=== PATIENT | male | born 1955 | race Caucasian/White ===

== ENCOUNTER 2023-07-14 19:00 | Inpatient (IN) | payer OTHER ==
[~2023-07-14] VITALS: Ht 180.3 cm; Wt 66.0 kg
[2023-07-14] MEDS ORDERED: LEVSOD100 PO (19:23)
[2023-07-14] MEDS ORDERED: OMEP20ER PO (19:23)
[2023-07-14] MEDS ORDERED: TADA10TA (19:24)
[2023-07-14 20:26] LABS: Hemoglobin 10.3 g/dL (13.5-17.5); Mean Corpuscular HGB 28.4 pg (26.0-34.0); Mean Corpuscular HGB Conc 33.2 g/dL (31.5-36.5); Mean Corpuscular Volume 85 fL (80-100); Mean Platelet Volume 9.7 fL (9.1-12.4); Platelet Count 447 K/mm3 (150-400); RDW Standard Deviation 46.6 fL (35.1-46.3); Red Blood Cell Count 3.63 M/mm3 (4.30-5.90); White Blood Cell Count 23.14 K/mm3 (4.00-11.30)
[2023-07-14 20:28] LABS: Albumin, Blood 1.5 g/dL (3.4-5.0); Albumin/Globulin Ratio 0.3 (0.8-1.8); Bilirubin, Total 0.2 mg/dL (0.1-1.0); Bun/Creatinine Ratio 34.4 (12.0-20.0); Calcium, Blood 8.5 mg/dL (8.5-10.1); Creatinine, Blood 0.76 mg/dL (0.60-1.20); Globulin, Blood 4.8 g/dL (2.2-4.0); Potassium, Blood 5.1 mmol/L (3.5-5.5); Total Protein, Blood 6.3 g/dL (6.4-8.2)
[2023-07-14 20:48] LABS: BAND PERCENT MAN 5 % (0-8); BASOPHILS PERCENT MAN 0 % (0-2); EOSINOPHILS ABSOLUTE MAN 0.23 K/mm3 (0.00-0.68); EOSINOPHILS PERCENT MAN 1 % (0-6); LYMPHOCYTES ABSOLUTE MAN 2.54 K/mm3 (0.84-5.20); LYMPHOCYTES PERCENT MAN 11 % (21-46); METAMYELOCYTE ABSOLUTE MAN 0.92 K/mm3 (0.00-0.00); METAMYELOCYTE PERCENT MAN 4 % (0-0); MONOCYTES ABSOLUTE MAN 1.85 K/mm3 (0.16-1.47); MONOCYTES PERCENT MAN 8 % (4-13); MYELOCYTE ABSOLUTE MAN 1.15 K/mm3 (0.00-0.00); MYELOCYTE PERCENT MAN 5 % (0-0); NEUTROPHILS ABSOLUTE MAN 16.42 K/mm3 (1.96-9.15); SEG NEUTROPHILS PERCENT MAN 66 % (41-73); TOTAL CELLS COUNTED 100
[2023-07-14 22:47] VITALS: BP 123/75
[2023-07-15] VITALS (16 sets, daily range): BP systolic 96–143; BP diastolic 55–128
--- NOTE | 2023-07-15 02:50 | NUR ---
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 PT C/O 7/10W PAIN "THROBBING" MEDICATED PER EMAR. LUNGS CLEAR T/O, VITALS ARE STABLE WITH HR 90s, PT REPORTS HX OF MENTAL HEALTH STRUGGLES BIPOLAR DEPRESSION ANXIETY AND HAS NOT BEEN TAKING MEDICATINS REGULARLY, PAIENT ABLE TO STAND ON RIGHT LEG AT BEDSIDE TO VOID OR PIVOT TO BSC WEIGHT TOLERATED, PT CALLS APPROPERAITELY A&OX4 CALL BEEL WITHIN REACH BED LOWERED WILL CONTINUE TO MONITOR.
[2023-07-15 06:17] LABS: Hematocrit 30.2 % (37.0-53.0); Hemoglobin 10.1 g/dL (13.5-17.5); Mean Corpuscular HGB 28.4 pg (26.0-34.0); Mean Corpuscular HGB Conc 33.4 g/dL (31.5-36.5); Mean Corpuscular Volume 85 fL (80-100); Mean Platelet Volume 9.2 fL (9.1-12.4); Platelet Count 477 K/mm3 (150-400); RDW Standard Deviation 47.5 fL (35.1-46.3); Red Blood Cell Count 3.56 M/mm3 (4.30-5.90); White Blood Cell Count 22.28 K/mm3 (4.00-11.30)
[2023-07-15 06:33] LABS: International Normalized Ratio 1.19; Prothrombin Time Results 12.4 Sec (9.7-11.5)
[2023-07-15 06:43] LABS: Bun/Creatinine Ratio 33.1 (12.0-20.0); Calcium, Blood 8.3 mg/dL (8.5-10.1); Creatinine, Blood 0.73 mg/dL (0.60-1.20); Potassium, Blood 4.8 mmol/L (3.5-5.5)
--- NOTE | 2023-07-15 19:28 | NUR ---
SHIFT SUMMARY: PT A&O X4. PLEASANT AND COOPERATIVE WITH CARE. PT C/O 12/11 PAIN IN LLE THIS AM. PA AND DR. CLEARY CONSULT PT FOR I&D OF L. KNEE. PT ARRIVED BACK FROM SURGERY @1815 VIA GURNEY W/ WOUND VAC AND HEMAVAC. PT C/O 11/10 PAIN. MEDICATED PER EMAR. NS INFUSING @100/HR c IV ABX. CALL LIGHT IN REACH. BED IN LOWEST POSITION. POST-OP VITALS OBTAINED. REPORT GIVEN TO ONCOMING RN.
[2023-07-16 02:35] VITALS: BP 114/70
--- NOTE | 2023-07-16 05:05 | NUR ---
SHIFT SUMMARY PT ADMIT FOR SEPSIS AND CELLULITIS IN LLE. SURGERY YESTERDAY. WOUND VAC APPLIED. PT CALM AND COOPERATIVE WITH CARE. MEDICATED FOR PAIN X2. PT SLEPT WELL MOST OF NIGHT.
[2023-07-16 07:18] VITALS: BP 125/66
[2023-07-16 10:28] LABS: Vancomycin, Trough 16.4 ug/mL (5.0-10.0)
[2023-07-16 15:37] VITALS: BP 127/88
--- NOTE | 2023-07-16 18:44 | NUR ---
SHIFT SUMMARY WOUND VAC RUNNING THIS SHIFT 120MMGH, HEMOVAC IN PLACE AND DRAINING PURLUENT RED/BROWN DRAINAINGE. C/O PAIN IN LEFT KNEE/LEG THIS SHIFT, MANAGED WITH FENTANYL AND OXY. PT EVAL THIS SHIFT. NPO AFTER MIDNIGHT FOR WOUND WASHOUT IN AM. CARES ONGOING.
[2023-07-16 20:02] VITALS: BP 109/65
[2023-07-17] VITALS (11 sets, daily range): BP systolic 98–133; BP diastolic 61–86
--- NOTE | 2023-07-17 08:07 | NUR ---
SHIFT SUMMARY NOC PT A/O X 4. PLEASANT AND COOPERATIVE WITH CARE. PT LLE PAIN MANAGED PER EMAR. WOUND VAC/HEMAVAC IN PLACE ON LLE DRAINING SEROSANGEOUS FLUID TO CONTAINER. PT HAS BEEN NPO SINCE MIDNIGHT FOR SCHEDULED IRRIGATION OF LLE I/D ON LLE TO CLEAN OUT BROWN FOUL SMELLING DRAINAGE. PT IS CURRENTLY RESTING WITH BED IN LOWEST POSITION, AND CALL LIGHT WITHIN REACH.
[2023-07-18 04:34] VITALS: BP 112/71
[2023-07-18 05:16] LABS: Hemoglobin 8.4 g/dL (13.5-17.5); Mean Corpuscular HGB 28.4 pg (26.0-34.0); Mean Corpuscular HGB Conc 33.6 g/dL (31.5-36.5); Mean Corpuscular Volume 85 fL (80-100); Mean Platelet Volume 9.1 fL (9.1-12.4); Platelet Count 790 K/mm3 (150-400); RDW Coefficient Variation 14.6 % (11.7-14.2); RDW Standard Deviation 45.1 fL (35.1-46.3); Red Blood Cell Count 2.96 M/mm3 (4.30-5.90); White Blood Cell Count 19.94 K/mm3 (4.00-11.30)
[2023-07-18 06:00] LABS: Bun/Creatinine Ratio 19.4 (12.0-20.0); Calcium, Blood 8.7 mg/dL (8.5-10.1); Creatinine, Blood 0.67 mg/dL (0.60-1.20); Potassium, Blood 3.7 mmol/L (3.5-5.5)
--- NOTE | 2023-07-18 06:07 | NUR ---
SHIFT SUMMARY NOC PT A/O X 4. PLEASANT AND COOPERATIVE WITH CARE. 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 PT HAS WOUND VAC AND HEMOVAC IN PLACE WITH DRESSING OVER LLE. PT PAIN BEING MANAGED PER EMAR. PT HAS BEE DOING ROM EXERCISES THAT PT/OT HAS WORKED WITH PT ON. PT IS CURRENTLY AWAITING SNF PLACEMENT FOR REHAB. PT IS CURRENTLY RESTING WITH BED IN LOWEST POSITION, AND CALL LIGHT WITHIN REACH.
[2023-07-18 07:16] VITALS: BP 110/64
[2023-07-18 17:30] VITALS: BP 102/61
[2023-07-18 19:35] VITALS: BP 115/69
--- NOTE | 2023-07-18 20:03 | NUR ---
SHIFT SUMMARY: TANISHA IS A&OX4. VSS, NO ACUTE EVENTS THIS SHIFT. HE REPORTS ADEQUATE PAIN CONTROL WITH MEDICATIONS PER MAR, IS TOLERATING PO INTAKE WELL, AND IS USING THE URINAL WITHOUT DIFFICULTY. HEMOVAC AND WOUND VAC TO LLE PATENT. IV TO LEFT AC PATENT. HE IS LYING IN BED WITH THE CALL LIGHT IN REACH. REPORT WAS GIVEN TO FLY WINDER RN.
--- NOTE | 2023-07-19 03:55 | NUR ---
SHIFT SUMMARY PT A&O X4, CALM AND COOPERATIVE WITH CARE. LEFT LEG WITH HEMOVAC AND WOUND VAC, PATENT. PT COMPLAINED OF LEFT LEG PAIN, MEDICATED PER EMAR, WHICH PT STATES IS WELL CONTROLLED. PT USING URINAL INDEPENDENTLY. TOLERATING REGULAR DIET. PT TAKES PILLS WHOLE WITH WATER. VITALS REVIEWED. NO ACUTE EVENTS OVERNIGHT. PT AWAITING SNF PLACEMENT. CALLS APPROPRAIETLY FOR NEEDS. WILL CONTINUE TO MONITOR. BED IN LOWEST POSITION WITH CALL LIGHT WITHIN REACH.
[2023-07-19 04:09] VITALS: BP 111/68
[2023-07-19 05:35] LABS: Hematocrit 26.5 % (37.0-53.0); Hemoglobin 8.7 g/dL (13.5-17.5); Mean Corpuscular HGB 28.2 pg (26.0-34.0); Mean Corpuscular HGB Conc 32.8 g/dL (31.5-36.5); Mean Corpuscular Volume 86 fL (80-100); Mean Platelet Volume 8.9 fL (9.1-12.4); Platelet Count 832 K/mm3 (150-400); RDW Coefficient Variation 14.9 % (11.7-14.2); RDW Standard Deviation 46.5 fL (35.1-46.3); Red Blood Cell Count 3.08 M/mm3 (4.30-5.90); White Blood Cell Count 21.65 K/mm3 (4.00-11.30)
[2023-07-19 06:08] LABS: Albumin, Blood 1.6 g/dL (3.4-5.0); Anion Gap 7 mmol/L (6-16); Blood Urea Nitrogen 16 mg/dL (8-24); Bun/Creatinine Ratio 22.1 (12.0-20.0); CO2, Blood 30 mmol/L (21-32); Calcium, Blood 9.1 mg/dL (8.5-10.1); Chloride, Blood 94 mmol/L (98-108); Creatinine, Blood 0.73 mg/dL (0.60-1.20); Glomerular Filtration Rate 100 (60-); Glucose, Blood 129 mg/dL (70-99); Magnesium, Blood 1.6 mg/dL (1.6-2.4); Phosphorus, Blood 4.1 mg/dL (2.5-4.9); Sodium, Blood 131 mmol/L (136-145)
[2023-07-19 07:29] VITALS: BP 105/77
[2023-07-19 17:04] VITALS: BP 96/57
--- NOTE | 2023-07-19 18:30 | NUR ---
SHIFT SUMMARY: PT A&O X4. PLEASANT AND COOPERATIVE WITH ALL CARE. PT C/O PAIN THIS AM DESPITE PAIN MEDICATIONS GIVEN PER EMAR. DR. JOE INCREASED ORAL DOSE OF OXYCODONE WHICH APPEARS TO HAVE HELPED PT THROUGHOUT SHIFT. WBC INCREASED WITH AM LABS. PLANS FOR ANOTHER SURGICAL WASHOUT TOMORROW. NPO AFTER MIDNIGHT. PT AWARE OF PLAN. WOUND VAC IN PLACE. CALL LIGHT IN REACH. BED IN LOWEST POSITION. CURRENTLY IN BED EATING DINNER W/O COMPLAINTS. WILL REPORT TO ONCOMING RN.
[2023-07-19 19:49] VITALS: BP 107/67
[2023-07-20] VITALS (16 sets, daily range): BP systolic 94–128; BP diastolic 56–81
[2023-07-20 05:13] LABS: Hematocrit 23.5 % (37.0-53.0); Hemoglobin 7.9 g/dL (13.5-17.5); Mean Corpuscular HGB 28.4 pg (26.0-34.0); Mean Corpuscular HGB Conc 33.6 g/dL (31.5-36.5); Mean Corpuscular Volume 85 fL (80-100); Mean Platelet Volume 9.4 fL (9.1-12.4); Platelet Count 729 K/mm3 (150-400); RDW Coefficient Variation 14.7 % (11.7-14.2); RDW Standard Deviation 45.2 fL (35.1-46.3); Red Blood Cell Count 2.78 M/mm3 (4.30-5.90)
--- NOTE | 2023-07-20 05:18 | NUR ---
SHIFT SUMMARY POD5 FROM FIRST I&D, POD 3 FROM 2ND I&D. PLAN FOR 3RD I&D TODAY. VSS, PT HAS REMAINED NPO SINCE 0000. SENSATION AND CIRCULATION REMAINS INTACT IN LLE, SANGUINEOUS EXUDATE NOTED IN WOUNDVAC. DRESSING APPEARS C/D/I. PT MEDICATED FOR PAIN WITH OXY AND TYLENOL W/TOLLERABLE RESULTS. PT VOIDED INTO URINAL T/O THE NIGHT, NO BM NOTED. PT REPORTS PASSING FLATTUS. DENIES N/V. NO ACUTE EVENTA NOTED T/O THE NIGHT, PLAN FOR PROCEEDURE TODAY AND CONTINUING MEDICATION THERAPY.
[2023-07-20 05:42] LABS: Bun/Creatinine Ratio 26.1 (12.0-20.0); Calcium, Blood 8.9 mg/dL (8.5-10.1); Creatinine, Blood 0.58 mg/dL (0.60-1.20); Percent Saturation 6.8 % (20.0-50.0); Potassium, Blood 4.2 mmol/L (3.5-5.5)
--- NOTE | 2023-07-20 17:59 | NUR ---
SHIFT SUMMARY PT PICKED UP BY DAY SURGERY APPROX 1145 THIS MORNING TO GO FOR ANOTHER I AND D OF LLE. WOUND VAC AND HEMIVAC IN PLACE WHEN HE LEFT BUT ON RETURN BOTH DEVICES HAD BEEN REMOVED. LEG WRAPPED WITH ISAURA BAND. CIRC CHECK WNL. REQUESTING ORAL PAIN MEDS ON RETURN FROM PACU AND ONCE GIVEN PT REPORTED RELIEF. USING URINAL TO VOID. WILL ENCOURAGE PT TO TRY GETTING UP TOMORROW WITH KNEE IMMOBILIZER IN PLACE.
[2023-07-21 00:19] VITALS: BP 102/64
[2023-07-21 04:18] VITALS: BP 100/67
--- NOTE | 2023-07-21 06:30 | NUR ---
SHIFT SUMMARY: TANISHA IS A&OX4. VSS, NO ACUTE EVENTS THIS SHIFT. POD1 FOR I&D OF THE LEFT KNEE. HE IS TOLERATING PO INTAKE WELL, IV TO RIGHT WRIST PATENT, AND HE REPORTS ADEQUATE PAIN CONTROL WITH MEDICATIONS PER MAR. ISAURA WRAP TO LLE CLEAN, DRY AND INTACT, LLE ELEVATED ON PILLOWS. PT IS ABLE TO USE THE URINAL INDEPENDENTLY. HE IS LYING IN BED WITH THE CALL LIGHT IN REACH. WILL GIVE REPORT TO DAY SHIFT NURSE.
[2023-07-21 08:52] VITALS: BP 112/67
[2023-07-21 12:46] VITALS: BP 97/72
--- NOTE | 2023-07-21 18:22 | NUR ---
SHIFT SUMMARY PT UP TO CHAIR TODAY AFTER L KNEE IMMOBILIZER PLACED ON LEG. LEG PROPPED ON STOOL WITH PILLOW FOR COMFORT AND ABLE TO SIT THERE FOR LUNCH. MEDICATED FOR PAIN NEEDED. BOWEL CARE GIVEN TODAY BUT NO RESULTS YET. SURGICAL DRESSING INTACT WITH CIRC CHECKS WNL TO L FOOT. DR. COLMENARES IN TO SEE PT THIS EVENING AND VERBALIZED DRESSING CHANGE TOMORROW AND THEN EVERY 2 DAYS WITH INSICION SITE CLEANSED WITH HIBICLEANSE OR ALCOHOL AND REDRESSED. OK TO GO TO SNF WITH 6 WEEKS OF IV ANTIBIOTICS.
[2023-07-21 19:56] VITALS: BP 105/72
--- NOTE | 2023-07-22 04:26 | NUR ---
SHIFT SUMMARY TANISHA WAS ALERT AND FULLY ORIENTED ON ASSESSMENT. PT DRESSING TO LLE C/D/I DUE FOR FIRST DRESSING CHANGE TODAY ON DAY SHIFT. PT MEDICATED FOR PAIN NEEDED. NO NEW OR WORSENING SYMPTOMS, NO ACUTE EVENTS, NO NEW COMPLAINTS. PT RESTING IN BED AT A LOW POSITION WITH THE CALL LIGHT IN REACH. PER MD NOTE: PT IS MEDICALLY CLEAR TO DISCHARGE FROM AN ORTHOPEDIC STANDPOINT.
[2023-07-22 07:51] VITALS: BP 110/70
[2023-07-22 12:16] LABS: SARS-Cov-2 (COVID-19) PCR, MMC NEGATIVE (NEGATIVE)
[2023-07-22] MEDS ORDERED: VITAMIN D31000 UNI1 PO (14:25)
[2023-07-22] MEDS ORDERED: CEFAZOLIN SODIUM1 G1 IV (14:27)
[2023-07-22] MEDS ORDERED: CLON.5 PO (14:29)
[2023-07-22] MEDS ORDERED: DOCUZEN 8.6-501 EACH PO (14:31)
[2023-07-22] MEDS ORDERED: NICOTINE GUM2 M1 PO (14:32)
[2023-07-22] MEDS ORDERED: LAMO25 PO (14:32)
[2023-07-22] MEDS ORDERED: FERRIC X-150150 M1 PO (14:33)
[2023-07-22 15:18] VITALS: BP 118/73
--- NOTE | 2023-07-22 18:25 | NUR ---
DISCHARGE SNF Patient alert & oriented x4. Pleasant and cooperative with cares. IV ABX administred. Surgeon came by to look at surgical incision on left leg. Cleaned suture sites, and applied guaze & ISAURA wrap. Vitals stable. Patient DC to [facility] at 1820.
--- NOTE | 2023-07-22 19:17 | NUR ---
Report given to RN at [facility]. Reviewed medical/surgical, history, VSS, and plan of care is to administred IV ABX via powerglide in LUE. And work with therapy.
== END 2023-07-22 18:15 | disposition hospice, inpatient (51) | DRG 854 ==
LOC: ER 19:00 → MEDS 22:20 → ENPENDDIS 07-22 11:25 → MEDS 07-22 18:15
PROVIDERS: Internal Medicine; Nurse Practitioner Acute Care; Student in an Organized Health Care Education/Training Program; ADMIT Internal Medicine
PROC: 0SBD0ZZ Excision of Left Knee Joint, Open Approach (ICD-10-PCS; principal; 2023-07-14)
PROC: 0LBP0ZZ Excision of Left Lower Leg Tendon, Open Approach (ICD-10-PCS; 2023-07-14)
PROC: 0S9D00Z Drainage of Left Knee Joint with Drainage Device, Open Approach (ICD-10-PCS; 2023-07-14)
PROC: 0J9P0ZZ Drainage of Left Lower Leg Subcutaneous Tissue and Fascia, Open Approach (ICD-10-PCS; 2023-07-14)
PROC: 3E03329 Introduction of Other Anti-infective into Peripheral Vein, Percutaneous Approach (ICD-10-PCS; 2023-07-15)
PROC: 0SBD0ZZ Excision of Left Knee Joint, Open Approach (ICD-10-PCS; 2023-07-17)
PROC: 0LBP0ZZ Excision of Left Lower Leg Tendon, Open Approach (ICD-10-PCS; 2023-07-17)
PROC: 0S9D00Z Drainage of Left Knee Joint with Drainage Device, Open Approach (ICD-10-PCS; 2023-07-17)
PROC: 0SBD0ZZ Excision of Left Knee Joint, Open Approach (ICD-10-PCS; 2023-07-20)
DX: A40.0 Sepsis due to streptococcus, group A (principal); E87.1 Hypo-osmolality and hyponatremia; L02.416 Cutaneous abscess of left lower limb; L03.116 Cellulitis of left lower limb; M00.9 Pyogenic arthritis, unspecified; M70.42 Prepatellar bursitis, left knee; E86.1 Hypovolemia; D50.9 Iron deficiency anemia, unspecified; F31.9 Bipolar disorder, unspecified; E03.9 Hypothyroidism, unspecified; J44.9 Chronic obstructive pulmonary disease, unspecified; F17.210 Nicotine dependence, cigarettes, uncomplicated; E87.5 Hyperkalemia; K21.9 Gastro-esophageal reflux disease without esophagitis; F41.9 Anxiety disorder, unspecified; Z79.890 Hormone replacement therapy; Z79.899 Other long term (current) drug therapy
CPT/HCPCS: 36415; 80048; 80053; 80069; 80202; 82728; 83540; 83550; 83605; 83735; 85025; 85027; 85610; 87040; 87070; 87075; 87147; 87205; 93005; 93010; 94760; 94762; 96361; 96374; 96375; 97110; 97116; 97162; 97530; 99285-25; A9270; J0690; J0692; J1100; J1885; J2250; J2371; J2405; J2543; J2704; J3010; J3370; J7030; J7050; J7120; U0002